=== PATIENT | female | born 1995 | race Two or more races ===

== ENCOUNTER 2016-10-09 16:40 | Emergency (ER) | payer OTHER ==
[~2016-10-09] VITALS: Ht 157.5 cm; Wt 50.0 kg
[~2016-10-09 16:40] MED LIST: BUPR1FIL3 SL
[2016-10-09 16:55] VITALS: BP 117/84; PULSE 120; O2SAT 98
[2016-10-09] MEDS ORDERED: 0.9% Sodium Chloride 1,000 ML IV ONE (17:36)
[2016-10-09] MEDS ORDERED: hydrOXYzine Pamoate 25 mg Capsule PO ONE (17:40)
[2016-10-09] MEDS ORDERED: Phenobarb-Hyoscy-Atrop-Scop 10 mL Elixir PO ONE (17:40)
[2016-10-09] MEDS ORDERED: cloNIDine 0.1 mg Tablet PO ONE (17:40)
[2016-10-09] MEDS ORDERED: Ondansetron 2 mg/mL 2 mL Inj IVPUSH ONE (17:40)
--- NOTE | 2016-10-09 17:49 | ED.REPORT ---
HPI-Abd Pain F Under 39 Date of Service Oct 09, 2016 ED Provider: Oscar Nails PA-C Jody is a 21-year-old female who presents with chief complaint of dehydration. Patient states she was recently released from senior care, where she had been since Tuesday (4 days). Patient admits to being a heroin user and says she has not used since Tuesday. She has had severe vomiting and diarrhea since discontinuing heroin and has been unable to keep down food and fluids. [facility] personnel were unable to wean IV access, patient stopped urinating and she was released to be seen in the emergency department. Patient admits a history of hepatitis C. She also complains of a cough that has been present approximately 2 weeks, initially with fever which has resolved. Nursing Notes Stated Complaint: DEHYDRATION Chief Complaint: Female Abdominal Pain Nursing Notes Reviewed: Yes Allergies: Coded Allergies: No Known Allergies (Unverified , 08/06/16) Scheduled Buprenorphine HCl/Naloxone HCl (Suboxone 8 mg-2 mg Sl Film) 1 Each Film 1 EACH SL BID Buprenorphine HCl/Naloxone HCl (Suboxone 8 mg-2 mg Sl Film) 1 Each Film 1 EACH SL DAILY General Time Seen by MD: 17:27 Chief Complaint Vomiting severe and heroin withdrawal Past Medical History Past Medical History IV Meth and heroin abuse Past Surgical History None reported Smoking History Current Some Day Smoker Social History Alcohol Use: "Social" Drug Use: IV drugs, Meth, Other Ambulatory Status Independent Review of Systems General: Denies fever, chills, malaise. HEENT: Denies congestion, headache, sore throat. Respiratory: Admits shortness of breath, cough. Denies dyspnea, wheezing. Cardiovascular: Denies chest pain, palpitations. Gastrointestinal: Admits vomiting, diarrhea, denies abdominal pain. Genitourinary: Denies frequency, urgency, dysuria, hematuria. Otherwise as noted in HPI. Physical Exam General: Well developed, thin, no acute distress. Head: Atraumatic, normocephalic. Eyes: No scleral icterus or injection. No discharge. Vision grossly intact. ENT: Voice clear, hearing grossly intact. Respiratory: Regular rate and rhythm. Breath sounds present, clear to auscultation and equal bilaterally. Cardiovascular: Regular rate and rhythm, without murmur, gallop or rub. No pedal edema. Gastrointestinal: Abdomen flat and non-tender without guarding or rebound. Bowel sounds normoactive. Skin: Warm and dry. Neurological: Grossly nonfocal. Psychological: alert and oriented. Speech appropriate, linear and logical. Behavior appropriate. Initial Vital Signs Vital Signs (First) Date Time Temp Pulse Resp B/P Pulse Ox O2 Delivery O2 Flow Rate FiO2 10/09/16 16:55 36.9 120 117/84 98 Room Air 10/09/16 19:17 18 Initial VS: Reviewed Interpretation & Diagnostics Lab Results Interpretation Test 10/09/16 18:30 Hold Purple Top Tube Received (Received) Hold [place] Top Tube Received (Received) Re-Eval/Medical Decision Med Decision/Clinical Course Med Decision/Clinical Course: care assumed by Dr Seo, suboxone shared decision making reviewed with pt. agreed upon suboxone induction in the ER. On discharge, dramatic improvement overall with complete resolution of withdrawal sx Re-Evaluation/Progress : Time of Eval: 23:38 Re-Evaluation/Progress Note: Unable to obtain IV access. The patient along with Dr. Seo, who discussed prescribing Suboxone with the patient, who is amenable. Discharge & Departure Primary Impression: Heroin abuse Additional Impression: Withdrawal from opioids Disposition: Home Referrals: NOPCP (PCP) Attending Statment Seen and examined. Significant nausea vomiting diarrhea with heroin withdrawal. Extremities without heroin actually certain of this with symptoms and no incarceration. Interested in being on Suboxone and has been on this before previously required 16 mg since she is using half a gram of heroin a day. 8 Milligrams of Subutex induction done in the emergency department with significant relief of symptoms she drank water apple juice and states she is ravenous. Discharged home with mom. Does have A plan for staying sober with multiple meetings Very interested in follow-up with [facility] previously has gone through [place] Prescription for Suboxone 8-2 1 film strip daily given #10 in anticipation of new pt appointment with ideal option Oscar Nails PA-C Oct 09, 2016 17:49 Pastora Seo MD Oct 09, 2016 19:23
[2016-10-09] MEDS ORDERED: BUPR1FIL3 SL (18:06)
[2016-10-09] MEDS ORDERED: Ondansetron 8 mg ODT Tablet PO ONE (18:15)
[2016-10-09] MEDS ORDERED: Buprenorphine 2 mg SL Tablet SL ONE (18:15)
[2016-10-09 19:17] VITALS: BP 106/74; PULSE 104; RESP 18; O2SAT 99
== END 2016-10-09 19:15 | disposition home or self-care (01) ==
LOC: SED 16:40
DX: F11.23 Opioid dependence with withdrawal (principal); R05 Cough; F17.200 Nicotine dependence, unspecified, uncomplicated